=== PATIENT | male | born 1955 | race Caucasian/White ===

== ENCOUNTER → 2022-07-23 08:51 | Outpatient (CLI) | payer MEDICARE, SELFPAY ==
--- NOTE | ~2022-07-23 | MR_ITS ---
EXAMINATION: MR shoulder LT wo con DATE: 07/23/2022 09:30 INDICATION: Left shoulder weakness and pain with loss of range of motion 2 weeks post fall TECHNIQUE: Magnetic resonance imaging (MRI) of the left shoulder was performed without intravenous co ntrast. Sequences included axial PD-weighted FS FSE, coronal oblique PD-weighted FS FSE, coronal obli que T2-weighted FS FSE, sagittal PD-weighted FS FSE, and sagittal T1-weighted SE. COMPARISON: None. FINDINGS: Coracoacromial arch: The acromion undersurface is flat in morphology (type I). There is mild thickening of the coracoacrom ial ligament near its acromial insertion. Severe acromioclavicular osteoarthritis. Rotator cuff: Moderate supraspinatus and infraspinatus tendinopathy. Large full-thickness tear along the superior a nd middle facet footplates of the supraspinatus and all but the posterior most infraspinatus tendon w here there are a few residual intact fibers. There is approximately 3 cm medial retraction of the fra yed and irregular tear margin which is positioned slightly medial to the apex of the humeral head. Th ere is associated feathery muscular edema in both of the supraspinatus and infraspinatus muscle ankit es both a small partial-thickness tear along the cephalad myotendinous junction of the supraspinatus. The teres minor tendon is normal. Moderate subscapularis tendinopathy with attenuation of the distal 2 cm the cephalad portion of the tendon with fraying and likely mild partial thickness tear along th e bursal side of the tendon. No asymmetric rotator cuff muscle atrophy. Biceps tendon, glenoid labrum and glenohumeral cartilage: Full-thickness tear and distal retraction of the long head biceps tendon with fraying and split teari ng of the retracted tear margin which is positioned below level of the intertubercular groove. Amorph ous degenerative tearing of the superior glenoid labrum. There are small marginal osteophytes along t he posterior inferior glenoid which extends into the base of the posterior inferior glenoid labrum. C hondral swelling and mild partial-thickness chondral fissuring without degenerative subchondral gonzalez es at the inferior glenoid. Mild partial-thickness cartilage loss with smooth chondral surface at the humeral head lateral to the apex. Fluid: Small glenohumeral joint effusion which extends into the subacromial/subdeltoid and subcoracoid bursa e through the full-thickness rotator cuff tear. No loose osteochondral bodies. Bones: No fracture or pathologic marrow replacing process. Cystic change along the superior and middle facet s of the greater tuberosity and to lesser extent along the lesser tuberosity likely related to chroni c rotator cuff disease. IMPRESSION: 1. Moderate rotator cuff tendinopathy with recent-appearing large full-thickness tear of the posterio r supraspinatus and anterior two thirds of the infraspinatus tendon along with additional small parti al-thickness tear along the anterosuperior myotendinous junction of the supraspinatus. 2. Mild partial-thickness bursal sided tear of the cephalad aspect of the distal subscapularis tendon . 3. Mild glenohumeral osteoarthritis with degenerative tearing of the superior glenoid labrum. 4. Full-thickness tear and distal retraction of the long head biceps tendon. 5. Severe acromioclavicular osteoarthritis. Reviewed, dictated and finalized at location A. IMPRESSION: 1. Moderate rotator cuff tendinopathy with recent-appearing large full-thicknes s tear of the posterior supraspinatus and anterior two thirds of the infraspina tus tendon along with additional small partial-thickness tear along the anteros uperior myotendinous junction of the supraspinatus. 2. Mild partial-thickness bursal sided tear of the c
== END ==
PROVIDERS: Visit Provider Orthopaedic Surgery
DX: S46.812A Strain of other muscles, fascia and tendons at shoulder and upper arm level, left arm, initial encounter (principal); M19.012 Primary osteoarthritis, left shoulder; S46.112A Strain of muscle, fascia and tendon of long head of biceps, left arm, initial encounter; T14.90XA Injury, unspecified, initial encounter
CPT/HCPCS: 73221

== ENCOUNTER 2022-09-20 19:06 | Inpatient (IN) | payer MEDICARE, SELFPAY ==
[2022-09-20] VITALS (10 sets, daily range): BP systolic 100–172; BP diastolic 69–87; PULSE 106–128; RESP 14–25; TEMP 36.8–37.7; O2SAT 94–97
--- NOTE | ~2022-09-20 | CT_ITS ---
EXAMINATION: CTA chest PE protocol DATE: 09/20/2022 21:31 INDICATION: fever, tachycardia, SOB, 7 days post op TECHNIQUE: Computed tomography angiography (CTA) of the chest was performed with 100 mL Omnipaque-350 intravenous contrast timed to evaluate the pulmonary arteries. Coronal maximum intensity projection 3D-reconstructions were created by the technologist. The dose-length product (DLP) was 1140.73 mGy-cm . Automated exposure control and iterative reconstruction technique were employed. COMPARISON: None. FINDINGS: Lung parenchyma and airways: 3 mm left lower lobe pulmonary nodule. Calcified left lower lobe granulo ma, otherwise clear. Patent airways. Pleura: Unremarkable. Thoracic inlet, axillae and chest wall: Moderate right gynecomastia, the left nipple excluded from th e [id number]. Thoracic aorta: Normal. Mediastinum: Normal. Heart and pericardium: Normal. Coronary artery calcifications: Moderate. Upper abdomen: Hepatic steatosis. Bones: No acute osseous finding. Pulmonary arteries: Study quality: Adequate. No pulmonary emboli detected. IMPRESSION: No CT evidence of acute pulmonary embolus. Gynecomastia. Hepatic steatosis. 3 mm left lower lobe pulmonary nodule, likely granuloma, requiring no additional workup unless the pa tient is at high risk, in which case consider an optional follow-up low-dose noncontrast CT of the ch est in 12 months. Reviewed, dictated and finalized at location K. IMPRESSION: No CT evidence of acute pulmonary embolus. Gynecomastia. Hepatic steatosis. 3 mm left lower lobe pulmonary nodule, likely granuloma, requiring no additiona l workup unless the patient is at high risk, in which case consider an optional follow-up low-dose noncontrast CT of the chest in 12 months.
--- NOTE | ~2022-09-20 | US_ITS ---
Duplex Sonography of the bilateral lower extremities: Indication: Swelling, erythema Sagittal and transverse B-mode images as well as color-flow imaging were performed on the right and l eft femoral and popliteal veins. B-mode examination was done without and with compression in the tra nsverse plane. There is good visualization of the bilateral common femoral, proximal profunda femora l, superficial femoral, greater saphenous, and popliteal veins. Normal flow was seen on color-flow im aging. Normal compressibility was demonstrated. Bilateral posterior tibial veins are also patent. Impression: No evidence of deep vein thrombosis involving either lower extremity. Reviewed, dictated and finalized at location . Impression: No evidence of deep vein thrombosis involving either lower extremit y.
--- NOTE | 2022-09-20 19:58 | ECG_ITS ---
Measurements Intervals [place] Rate: 121 P: 39 FL: 135 QRS: 4 QRSD: 101 T: 61 QT: 337 QTc: 478 Interpretive Statements SINUS TACHYCARDIA CONSULT [facility] [facility] AND T ABNORMALITY ABNORMAL ECG NO PREVIOUS ECG AVAILABLE FOR COMPARISON Electronically Signed On 09-21-2022 8:17:28 CDT by Kayode Zavala M.D.
[2022-09-20 20:08] LABS: Basophils Absolute Auto 0.1 K/mm3 (0.0-0.1); Basophils Percent Auto 0.4 % (0.2-1.2); Eosinophils Percent Auto 0.1 % (0-4.4); Hematocrit 45.9 % (42.0-52.0); Hemoglobin 16.3 g/dL (14.0-18.0); Immature Granulocyte Absolute 0.31 K/mm3 (0.00-0.031); Immature Granulocyte Percent A 1.3 % (0-0.5); Lymphocytes Absolute Auto 1.07 K/mm3 (0.9-3.2); Lymphocytes Percent Auto 4.6 % (18.3-44.2); Mean Corpuscular HGB Conc 35.5 g/dl (32-36); Mean Corpuscular Hemoglobin 32.6 pg (26-34); Mean Corpuscular Volume 91.8 fl (80-100); Mean Platelet Volume 9.6 fl (7.4-10.4); Monocytes Percent Auto 4.1 % (2.6-8.5); Neutrophils Absolute Auto 20.9 K/mm3 (1.3-6.7); Neutrophils Percent Auto 89.5 % (45.5-73.1); Platelet Count Result 316 k/mm3 (150-375); Red Cell Distribution Width 12.6 % (11.5-14.5); White Blood Count 23.4 K/mm3 (4.5-10.0)
--- NOTE | 2022-09-20 20:21 | ED.FEVER ---
HPI - Fever General Chief Complaint: Fever <ALE Leo Last Filed: 09/21/22 01:28> Stated Complaint: fever, body aches <ALE Leo Last Filed: 09/21/22 01:28> Time Seen by Provider: 09/20/22 19:36 <ALE Leo Last Filed: 09/21/22 01:28> History of Present Illness HPI Narrative: Patient is 66-year-old male here for evaluation of fever. Patient states that he had his rotator cuff repaired 7 days ago at [facility]. He was doing well until today when he started to get diffuse body aches. He took his temperature and it was 101 at home. He has also developed some shortness of breath and nonproductive cough today. He had a negative COVID, flu and strep test at a prior urgent care. He does not take blood thinner medicines. He has not taken any Tylenol for his symptoms today. <ALE Leo Last Filed: 09/21/22 01:28> Related Data Home Medications: Home Medications Medication Instructions Recorded Confirmed allopurinol 300 mg tablet 300 mg PO DAILY 09/21/22 09/21/22 aspirin 81 mg tablet 81 mg PO DAILY 09/21/22 09/21/22 cetirizine 10 mg capsule 10 mg PO DAILY 09/21/22 09/21/22 lisinopril 20 1 tablet PO DAILY 09/21/22 09/21/22 mg-hydrochlorothiazide 25 mg tablet metoprolol succinate 50 mg 50 mg PO DAILY 09/21/22 09/21/22 tablet,extended release 24 hr oqbdnjiq-nbgvanyi-gttpw acid 400 1 tablet PO DAILY 09/21/22 09/21/22 mcg-vit K 20 mcg-lycop 300 mcg tablet oxycodone-acetaminophen 10 mg-325 1 tablet PO Q4H PRN Pain (Scale 09/21/22 09/21/22 mg tablet Score 7-10) <ALE Leo Last Filed: 09/21/22 01:28> Allergies/Adverse Reactions: Allergies Allergy/AdvReac Type Severity Reaction Status Date / Time codeine AdvReac Unknown Headache Verified 09/20/22 19:24 Bnfzshq-ASR-PcA Reductase AdvReac Unknown Joint Pain Verified 09/21/22 02:53 Inhibitor <Tessa Shrestha PA-C - Last Filed: 09/21/22 01:28> Review of Systems Review of Systems: Gen: Reports fevers Eyes: Denies eye pain or visual change ENT: Denies congestion Respiratory: Reports shortness of breath CV: Reports chest pain GI: Denies abdominal pain nausea, emesis or diarrhea : denies burning, urgency, frequency or hematuria Musculoskeletal: Denies back pain or muscle pain Neuro: Denies numbness, tingling, weakness or focal weakness Skin: Denies rash Except as documented, all other systems reviewed and negative <ALE Leo Last Filed: 09/21/22 01:28> [facility] Family History Family History: Family History (Updated 09/21/22 @ 03:28 by Judi Coreas RN) Other Unknown family medical history <ALE Leo Last Filed: 09/21/22 01:28> Social History Social History: Social History Smoking status: Never smoker Alcohol intake: never Substance use: never Lack of Transportation: No Lack of Food: Never True Current Housing: I Have Housing Concerned About Future Housing: No Difficulty Paying Gas/Electric Bills: No Difficulty Paying for Meds: No Currently Unemployed: No Education: Decline to Answer Difficulty w/ Childcare or Family Care: No Spiritual care concerns: No <ALE Leo Last Filed: 09/21/22 01:28> Exam Narrative: APPEARANCE: ill-appearing male, tachypneic Head: Normocephalic and atraumatic. EYES: PERRLA/EOMI, conjunctivae clear NOSE: No nasal drainage EARS: External ear normal in appearance THROAT: Oropharynx is clear. Mucous membranes are moist. NECK: Supple. No adenopathy, no masses. RESPIRATORY: Tachypneic. Airway patent, respirations nonlabored. Clear to auscultation bilaterally, no rales, rhonchi, wheezing. CARDIOVASCULAR: Tachycardic. Regular rhythm without murmurs, rubs, or gallops. ABDOMINAL: Normoactive bowel sounds. Soft, nontender, nondistended. No rebound tenderness or guarding. M
[2022-09-20 20:23] LABS: Prothrombin Time 13.6 Seconds (11.1-14.7)
[2022-09-20 20:24] LABS: Partial Thromboplastin Time 29.9 SECONDS (22.3-36.8)
[2022-09-20] MEDS: ACETAMINOPHEN 500 MG TABLET 1000 MG PO (20:25)
[2022-09-20 20:26] LABS: Lactic Acid Reflex 3.3 mmol/L (0.7-2.0)
[2022-09-20] MEDS: SODIUM CHLORIDE 0.9% IV 1,000 ML 999 ML IV CONT ×2 (20:28→21:56)
[2022-09-20 20:45] LABS: Alanine Aminotransferase 48 U/L (6-50); Albumin Level 4.5 g/dL (3.5-5.1); Alkaline Phosphatase 65 U/L (38-126); Anion Gap 11 mmol/L (8-16); Aspartate Amino Transferase 44 U/L (17-59); Bilirubin,Total 0.6 mg/dL (0.2-1.3); Blood Urea Nitrogen 16 mg/dL (9-20); Calcium 9.2 mg/dL (8.4-10.2); Carbon Dioxide 26 mmol/L (22-30); Chloride 97 mmol/L (98-107); Estimated CRCL calculation 113 ml/min; Estimated Glomerular Filt Rate > 60; Glucose 150 mg/dL (65-110); NT Pro B Type Natriuretic Pept 180 pg/mL (19.9-100); Potassium 3.6 mmol/L (3.4-5.0); Sodium 134 mmol/L (137-145); Troponin I < 0.012 ng/mL (0.000-0.034)
[2022-09-20 21:17] LABS: Appearance Urine Clear (Clear); Bacteria Urine None Seen /hpf; Bilirubin Urine Negative (Negative); Blood Urine Negative (Negative); Color Urine Yellow (Yellow); Glucose Urine UA Negative (Negative); Ketones Urine Negative (Negative); Leukocyte Esterase Ur Trace LEU/UL (Negative); Nitrate Urine Negative (Negative); Non Pathogenic Casts 0-2; Protein Urine Negative (Negative); RBC Urine 0-2 /hpf (0-2); Specific Grav Ur 1.013 (1.001-1.035); Squamous Epithelial Cell Urine None seen /hpf (Few); Urobilinogen Urine 0.2 mg/dL (<2.0); WBC Urine 0-5 /hpf; pH Urine 6.5 (5.0-9.0)
[2022-09-20 21:18] LABS: Add Urine Microscopic? YES
[2022-09-20] MEDS: PIPERACILLN/TAZ 3.375GM/NS50ML 3.375 GM/50 ML BAG IVPB (21:56)
[2022-09-20] MEDS: VANCOMYCIN 1,250 MG/NS 250 ML 1,250 MG/250 ML BAG 166.67 MG IVPB ×2 (22:25→23:53)
[2022-09-20 23:06] LABS: Reflex Lactic Acid Yes or No Add Lactic
[2022-09-21] VITALS (12 sets, daily range): BP systolic 111–157; BP diastolic 61–83; PULSE 96–105; RESP 14–20; TEMP 36.3–37.4; O2SAT 94–99; BMI 44.2
[2022-09-21 00:37] LABS: Lactic Acid 2.6 mmol/L (0.7-2.0)
[2022-09-21] MEDS: SODIUM CHLORIDE 0.9% IV 1,000 ML 999 ML IV CONT (01:47)
--- NOTE | 2022-09-21 02:15 | ADMGEN ---
This patient, Altagracia Murphy, was admitted to Medical Room 349-01. Patient/family oriented to hospital policies and general routines including ID bracelet, bed and alarms, visiting hours, pain management, procedures, bathroom and other care routines, personal items, smoking policy, room service/diet, and visiting hours. Information on how to activate the Rapid Response Team has been discussed. Patient/Family are encouraged to report perceived risks to care and to ask questions if they do not understand what they are told or what they should do.
[2022-09-21 02:41] LABS: Influenza A QL RT-PCR Negative (Negative); Influenza B QL RT-PCR Negative (Negative); RSV RNA, RT-PCR Negative (Negative); SARS-CoV-2 RNA PCR Negative (Negative)
[2022-09-21] MEDS: SODIUM CHLORIDE 0.9% IV 1,000 ML 125 ML IV CONT (04:05)
[2022-09-21 06:39] LABS: Estimated CRCL calculation 96 ml/min; Estimated Glomerular Filt Rate > 60
[2022-09-21] MEDS: THERAPEUTIC MULTIVITAMINS/MINERALS TAB (*BKC) 1 TABLET PO (09:00)
[2022-09-21] MEDS: allopurinoL 300 MG TABLET PO (09:00)
[2022-09-21] MEDS: LORATADINE 10 MG TABLET PO (09:00)
[2022-09-21] MEDS: ASPIRIN 81 MG ENTERIC TABLET PO (09:00)
--- NOTE | 2022-09-21 10:36 | PM.IMHP ---
H&P: HPI History of Present Illness Date/Time: 09/21/22 10:00 Chief Complaint: Fever and chills Chronic cough on lisinopril Recent left rotator cuff repair Narrative: This is a pleasant 66-year-old white male patient presents to the hospital for admission due to suspected sepsis. Patient had left rotator cuff repair 7 days ago at [facility] and was concerned he may have a surgical site infection. Patient reports that he was doing well after the surgery no longer using and pain medication and was active without complication until suddenly he felt severe chills and fever. Patient was advised to seek care at the emergency department. Workup in the emergency department was concerning for sepsis where patient was found to be tachycardic and febrile with a white blood cell count of 23.4. He also had a lactic acidosis at 3.3 with a repeat of 2.6 after fluid bolus. Patient had some mild shortness of breath and given recent surgical status CTA was performed to assess for pulmonary embolus. No findings of PE or pneumonia. Patient notes some mild sore throat that he is attributing to being intubated a week ago for surgery. Patient denied any urinary discomfort, wounds, neck stiffness, headache, light sensitivity. Patient denies productive cough or wheezing, endorses a chronic dry cough that he has had for months to years that he associates with taking lisinopril daily. Patient reports he has never talked to his prescriber (Cardiology out of [facility]) regarding this complaint with lisinopril. At this time there is no evident source to explain infection. For this reason patient was started on vancomycin and Zosyn in the emergency department and continued to the floor. Review of Systems Review of Systems: All systems reviewed & are unremarkable except as noted in HPI and below Constitutional: Comments: Fever and chills Cardiovascular: Comments: Denies chest pain or shortness of breath Respiratory: Comments: Notes chronic dry cough, denies shortness of breath at this time, reports left leg swelling Musculoskeletal: Comments: Reports left leg swelling and tenderness PMFSH Past Medical History Medical History Gout HLD (hyperlipidemia) Seasonal allergies Family History Family History Other Unknown family medical history Social History Social History Smoking status: Never smoker Alcohol intake: never Substance use: never Lack of Transportation: No Lack of Food: Never True Current Housing: I Have Housing Concerned About Future Housing: No Difficulty Paying Gas/Electric Bills: No Difficulty Paying for Meds: No Currently Unemployed: No Education: Decline to Answer Difficulty w/ Childcare or Family Care: No Spiritual care concerns: No Comments Tonsillectomy 1974, right rotator cuff surgery 1998, sinus surgery 2007, left rotator cuff surgery 2022 Medical History Gout HLD (hyperlipidemia) Seasonal allergies Family History Other Unknown family medical history Social History Smoking status: Never smoker Alcohol intake: never Substance use: never Lack of Transportation: No Lack of Food: Never True Current Housing: I Have Housing Concerned About Future Housing: No Difficulty Paying Gas/Electric Bills: No Difficulty Paying for Meds: No Currently Unemployed: No Education: Decline to Answer Difficulty w/ Childcare or Family Care: No Spiritual care concerns: No Meds Home Medications and Allergies Home Medications Medication Instructions Recorded Confirmed Type allopurinol 300 mg tablet 300
[2022-09-21 11:09] LABS: Lactic Acid Reflex 2.6 mmol/L (0.7-2.0)
[2022-09-21 11:11] LABS: Strep Group A RT-PCR NOT DETECTED (Negative)
[2022-09-21] MEDS: PIPERACILLN/TAZ 3.375GM/NS50ML 3.375 GM/50 ML BAG IVPB ×2 (11:14→17:05)
[2022-09-21] MEDS: LACTATED RINGERS 1,000 ML 150 ML IV CONT (13:31)
[2022-09-21] MEDS: ACETAMINOPHEN 325 MG TABLET 650 MG PO ×2 (13:32→20:11)
[2022-09-21 13:53] LABS: Reflex Lactic Acid Yes or No Add Lactic
[2022-09-21 15:44] LABS: Lactic Acid 1.6 mmol/L (0.7-2.0)
[2022-09-21] MEDS: ENOXAPARIN 40 MG/0.4 ML SYRINGE SUB-Q (20:15)
[2022-09-21] MEDS: LACTATED RINGERS 1,000 ML 70 ML IV CONT (20:18)
[2022-09-22] VITALS (7 sets, daily range): BP systolic 137–145; BP diastolic 70–83; PULSE 86–105; RESP 14–16; TEMP 36.2–36.7; O2SAT 97–99
[2022-09-22] MEDS: PIPERACILLN/TAZ 3.375GM/NS50ML 3.375 GM/50 ML BAG IVPB ×4 (00:44→18:59)
[2022-09-22 06:21] LABS: Basophils Absolute Auto 0.1 K/mm3 (0.0-0.1); Basophils Percent Auto 0.3 % (0.2-1.2); Eosinophils Absolute Auto 0.1 K/mm3 (0-0.3); Eosinophils Percent Auto 0.4 % (0-4.4); Hematocrit 39.7 % (42.0-52.0); Hemoglobin 13.6 g/dL (14.0-18.0); Immature Granulocyte Absolute 0.14 K/mm3 (0.00-0.031); Immature Granulocyte Percent A 0.7 % (0-0.5); Lymphocytes Absolute Auto 1.46 K/mm3 (0.9-3.2); Lymphocytes Percent Auto 7.7 % (18.3-44.2); Mean Corpuscular HGB Conc 34.3 g/dl (32-36); Mean Corpuscular Hemoglobin 32.2 pg (26-34); Mean Corpuscular Volume 93.9 fl (80-100); Mean Platelet Volume 9.6 fl (7.4-10.4); Monocytes Absolute Auto 1.4 K/mm3 (0.1-0.6); Monocytes Percent Auto 7.2 % (2.6-8.5); Neutrophils Absolute Auto 15.9 K/mm3 (1.3-6.7); Neutrophils Percent Auto 83.7 % (45.5-73.1); Platelet Count Result 252 k/mm3 (150-375); Red Blood Count 4.23 M/mm3 (4.6-6.20); Red Cell Distribution Width 13.1 % (11.5-14.5); White Blood Count 18.9 K/mm3 (4.5-10.0)
[2022-09-22 06:27] LABS: Lactic Acid Reflex 1.5 mmol/L (0.7-2.0)
[2022-09-22 06:33] LABS: Alanine Aminotransferase 33 U/L (6-50); Albumin Level 3.7 g/dL (3.5-5.1); Alkaline Phosphatase 70 U/L (38-126); Anion Gap 6 mmol/L (8-16); Aspartate Amino Transferase 46 U/L (17-59); Bilirubin,Total 0.7 mg/dL (0.2-1.3); Blood Urea Nitrogen 10 mg/dL (9-20); Calcium 8.5 mg/dL (8.4-10.2); Carbon Dioxide 28 mmol/L (22-30); Chloride 101 mmol/L (98-107); Estimated CRCL calculation 124 ml/min; Estimated Glomerular Filt Rate > 60; Glucose 139 mg/dL (65-110); Potassium 3.3 mmol/L (3.4-5.0); Sodium 135 mmol/L (137-145)
[2022-09-22] MEDS: allopurinoL 300 MG TABLET PO (08:17)
[2022-09-22] MEDS: THERAPEUTIC MULTIVITAMINS/MINERALS TAB (*BKC) 1 TABLET PO (08:17)
[2022-09-22] MEDS: LOSARTAN POTASSIUM 50 MG TABLET PO (08:17)
[2022-09-22] MEDS: hydroCHLOROthiazide 25 MG TABLET PO (08:17)
[2022-09-22] MEDS: ASPIRIN 81 MG ENTERIC TABLET PO (08:17)
[2022-09-22] MEDS: LORATADINE 10 MG TABLET PO (08:17)
[2022-09-22] MEDS: ACETAMINOPHEN 325 MG TABLET 650 MG PO (08:17)
[2022-09-22] MEDS: METOPROLOL SUCCINATE EXT REL 50 MG TABCR PO (08:18)
[2022-09-22] MEDS: POTASSIUM CHLORIDE 20 MEQ ER TABLET 40 MEQ PO (08:19)
[2022-09-22] MEDS: ENOXAPARIN 40 MG/0.4 ML SYRINGE SUB-Q ×2 (08:21→22:06)
--- NOTE | 2022-09-22 08:45 | PM.IMPN ---
Progress Note: A&P Assessment and Plan (1) Sepsis: Onset Date: ~09/21/22 Code(s): A41.9 - Sepsis, unspecified organism Status: Acute Assessment and Plan: Patient presented with fever and chills originally unknown source sepsis. Now left lower extremity cellulitis has been identified with blood culture positive for g positive cocci in chains awaiting for the report and susceptibility. Patient on vancomycin and Zosyn this time. Lactic acidosis has resolved and blood pressure remained stable. Continue antibiotics (2) Lactic acidosis: Code(s): E87.20 - Acidosis, unspecified Status: Acute Assessment and Plan: With administration of IV fluids and IV antibiotics, lactic acidosis has resolved. (3) Cellulitis: Code(s): L03.90 - Cellulitis, unspecified Status: Acute Assessment and Plan: Left lower extremity cellulitis identified with discovery a small puncture wound to the left lateral calf, no surrounding fluctuance or drainable abscess. Update Tdap due to unknown puncture. Continue IV antibiotics with planned deescalation and discharge tomorrow. (4) Shoulder pain with history of repair of rotator cuff: Code(s): M25.519 - Pain in unspecified shoulder; Z98.890 - Other specified postprocedural states Status: Acute Assessment and Plan: Shoulder surgery 8 days ago at [facility] for rotator cuff repair. Surgical site clean dry intact sutures to be removed 09/24/2022. Patient maintain shoulder sling in place (5) HTN (hypertension): Qualifiers: Hypertension type: primary hypertension Qualified Code(s): I10 - Essential (primary) hypertension Code(s): I10 - Essential (primary) hypertension Status: Acute Assessment and Plan: Blood pressure stabilized/remained mildly elevated overnight. Blood pressure medicines held yesterday due to concern for hypotension in the setting of sepsis. Restart home medications with substitution of losartan for his lisinopril due to chronic dry cough associated with lisinopril. Plan Discontinue continuous IV fluids. Discontinue telemetry monitoring. Continue IV antibiotics as there was a rise in white blood cell count overnight after an initial decrease. Repeat blood cultures and follow cultures in process for identification and sensitivity. Restart home antihypertensives. Discontinued lisinopril and replaced with losartan due to chronic cough associated with lisinopril. Time Spent With Patient Time with patient: Greater than 35 minutes Subjective Date/time seen: 09/22/22 08:30 Interval history: This is a 66-year-old male patient who was admitted to the hospitalist service due to concern for sepsis. Upon assessment this morning patient reports improvement in sensation dizziness and denies any fevers or chills. States that he is feeling much better back to baseline. Patient is receiving IV vancomycin and Zosyn. IV fluids infused overnight. Patient reports good appetite and good oral intake. Patient denies any pain or concerns with left shoulder surgical site. Review of Systems Review of Systems: All systems reviewed & are unremarkable except as noted in HPI and below Exam Narrative: General:?Well appearing in good spirits seated upright in a chair. HEENT:?PERRL, EOMI. Sclera anicteric. Moist mucous membranes Neck:??Supple. Full ROM without meningeal signs Respiratory:?Lungs are clear to auscultation bilaterally. No wheezes, rales or rhonchi Cardiovascular:??Regular rate and rhythm with S1-S2. Gastrointestinal:??Abdomen is obese, soft and non tender with normal bowel sounds.? No guarding or rebound tenderness. Skin:??Warm and dry.? Erythema noted left lower leg Extremities:??Left shoulder sling in place, multiple arthroscopic wounds with intact sutures, no surrounding erythema no significant tenderness no warmth or swelling and no wound drainage.? Left lower extremity swollen, no pitting edema,
[2022-09-22 09:46] LABS: Vancomycin Trough 6.8 ug/mL (10.0-20.0)
[2022-09-22] MEDS: TETANUS,DIPHTHERIA,AC PERTUSSIS ADULT (0.5 ML) BOOSTRIX IM (11:38)
[2022-09-23] MEDS: PIPERACILLN/TAZ 3.375GM/NS50ML 3.375 GM/50 ML BAG IVPB ×3 (00:45→11:43)
[2022-09-23 02:12] LABS: Basophils Absolute Auto 0.1 K/mm3 (0.0-0.1); Basophils Percent Auto 0.6 % (0.2-1.2); Eosinophils Absolute Auto 0.3 K/mm3 (0-0.3); Hematocrit 38.8 % (42.0-52.0); Hemoglobin 13.4 g/dL (14.0-18.0); Immature Granulocyte Absolute 0.16 K/mm3 (0.00-0.031); Immature Granulocyte Percent A 1.2 % (0-0.5); Lymphocytes Absolute Auto 2.41 K/mm3 (0.9-3.2); Lymphocytes Percent Auto 17.8 % (18.3-44.2); Mean Corpuscular HGB Conc 34.5 g/dl (32-36); Mean Corpuscular Hemoglobin 31.8 pg (26-34); Mean Corpuscular Volume 92.2 fl (80-100); Mean Platelet Volume 9.8 fl (7.4-10.4); Monocytes Absolute Auto 1.3 K/mm3 (0.1-0.6); Monocytes Percent Auto 9.3 % (2.6-8.5); Neutrophils Absolute Auto 9.3 K/mm3 (1.3-6.7); Neutrophils Percent Auto 69.1 % (45.5-73.1); Platelet Count Result 271 k/mm3 (150-375); Red Blood Count 4.21 M/mm3 (4.6-6.20); Red Cell Distribution Width 12.9 % (11.5-14.5); White Blood Count 13.5 K/mm3 (4.5-10.0)
[2022-09-23 02:45] LABS: Alanine Aminotransferase 34 U/L (6-50); Albumin Level 3.5 g/dL (3.5-5.1); Alkaline Phosphatase 57 U/L (38-126); Anion Gap 7 mmol/L (8-16); Aspartate Amino Transferase 51 U/L (17-59); Bilirubin,Total 0.6 mg/dL (0.2-1.3); Blood Urea Nitrogen 11 mg/dL (9-20); Calcium 8.7 mg/dL (8.4-10.2); Carbon Dioxide 26 mmol/L (22-30); Chloride 102 mmol/L (98-107); Estimated CRCL calculation 124 ml/min; Estimated Glomerular Filt Rate > 60; Glucose 120 mg/dL (65-110); Potassium 3.7 mmol/L (3.4-5.0); Sodium 135 mmol/L (137-145)
[2022-09-23 02:50] LABS: Vancomycin Trough 18.1 ug/mL (10.0-20.0)
[2022-09-23 05:50] VITALS: BP 158/92; PULSE 87; RESP 16; TEMP 36.9; O2SAT 100
[2022-09-23 09:00] VITALS: BP 152/88; PULSE 80
[2022-09-23 09:07] VITALS: PULSE 80
[2022-09-23] MEDS: METOPROLOL SUCCINATE EXT REL 50 MG TABCR PO (09:07)
[2022-09-23] MEDS: LOSARTAN POTASSIUM 50 MG TABLET PO (09:07)
[2022-09-23] MEDS: hydroCHLOROthiazide 25 MG TABLET PO (09:07)
[2022-09-23] MEDS: ASPIRIN 81 MG ENTERIC TABLET PO (09:07)
[2022-09-23] MEDS: THERAPEUTIC MULTIVITAMINS/MINERALS TAB (*BKC) 1 TABLET PO (09:07)
[2022-09-23] MEDS: LORATADINE 10 MG TABLET PO (09:07)
[2022-09-23] MEDS: allopurinoL 300 MG TABLET PO (09:07)
[2022-09-23] MEDS: ENOXAPARIN 40 MG/0.4 ML SYRINGE SUB-Q ×2 (09:07→20:16)
--- NOTE | 2022-09-23 11:09 | PM.IMPN ---
Progress Note: A&P Assessment and Plan (1) Sepsis: Onset Date: ~09/21/22 Code(s): A41.9 - Sepsis, unspecified organism Status: Acute Assessment and Plan: Patient stabilized with resolution of fever/chills, improvement in labs (lactic acid normalized and WBC downtrending) and cellulitis appearance beginning to improve. Will continue vancomycin in case of polymicrobial involvement. Monitor blood cultures. Deescalate Zosyn to IV ceftriaxone and plan to change to oral antibiotics upon discharge. (2) Cellulitis: Code(s): L03.90 - Cellulitis, unspecified Status: Acute Assessment and Plan: Beginning to improve. See above. (3) Left leg swelling: Code(s): M79.89 - Other specified soft tissue disorders Status: Acute Assessment and Plan: Beginning to improve. See above. (4) Lactic acidosis: Code(s): E87.20 - Acidosis, unspecified Status: Acute Assessment and Plan: Lactic acid returned to normal. No longer trending. (5) Shoulder pain with history of repair of rotator cuff: Code(s): M25.519 - Pain in unspecified shoulder; Z98.890 - Other specified postprocedural states Status: Acute Assessment and Plan: Stable and improved. Follow surgeon recommendations regarding removing sutures tomorrow morning. (6) HTN (hypertension): Qualifiers: Hypertension type: primary hypertension Qualified Code(s): I10 - Essential (primary) hypertension Code(s): I10 - Essential (primary) hypertension Status: Acute Assessment and Plan: Stable, home medications resumed with therapeutic change from lisinopril to losartan due to chronic cough Plan Trend WBC Monitor blood cultures for sensitivities and ensure no growth on repeat cultures. Deescalate antibiotics after consultation with ID Pharmacist. Time Spent With Patient Time with patient: 25 - 35 minutes Subjective Date/time seen: 09/23/22 07:15 Interval history: This is a 66-year-old male patient admitted to the hospital service for sepsis ultimate source of the extremity cellulitis. Initial blood cultures positive for group B strep. There was concern this may possibly be polymicrobial and patient remains on IV vancomycin and Zosyn. Patient reports resting better overnight no fever no chills no weakness no dizziness no chest pain no shortness of breath nausea no vomiting no constipation no diarrhea. Patient reports no pain to his left shoulder surgical site and no general complaints at this time. Sutures are to be removed tomorrow. Patient reports he has appointment with surgeon tomorrow for follow up but he will call office today to inquire if we should remove sutures while admitted here. Review of Systems Review of Systems: All systems reviewed & are unremarkable except as noted in HPI and below Exam Narrative: General:?Well appearing in good spirits seated upright in a chair. HEENT:?PERRL, EOMI. Sclera anicteric. Moist mucous membranes Neck:??Supple. Full ROM without meningeal signs Respiratory:?Lungs are clear to auscultation bilaterally. No wheezes, rales or rhonchi Cardiovascular:??Regular rate and rhythm with S1-S2. Gastrointestinal:??Abdomen is obese, soft and non tender with normal bowel sounds.? No guarding or rebound tenderness. Skin:??Warm and dry.? Erythema noted left lower leg Extremities:??Left shoulder sling in place, multiple arthroscopic wounds with intact sutures, no surrounding erythema no significant tenderness no warmth or swelling and no wound drainage.? Left lower extremity swollen, no pitting edema, there is calf erythema, tenderness, tightness and warmth to the touch. On the left lateral edge of left calf there is an apparent skin puncture site, no fluctuance or appreciable abscess.?Erythema is no longer extending and is beginning to lighten and resolve at the most proximal aspects. No cyanosis or clubbing. Radial and pedal pulses intact
--- NOTE | 2022-09-23 13:49 | PHA.ABX.ID ---
Pharmacy ID Consult - Stewardship Interventions Type of Interventions: De-escalation Pharmacy ID Note: Subjective Pharmacy was consulted by Ludivina Lu regarding infectious diseases for Altagracia Murphy. Altagracia Murphy is a 66 year old M with concerns regarding bloodstream infection likely secondary to SSTI. Background The patient is currently receiving Vancomycin and Ceftriaxone (~day 3 of full therapy). Patient was recently transitioned from piperacillin/tazobactam to ceftriaxone. The patient's PMH includes cellulitis surrounding calf that has begun remitting. Additionally, WBC trend is approaching normalization (18.9 --> 13.5) and has a SCr of 0.7 mg/dL. Microbiology is as below which shows group b streptococcus bloodstream infection with repeat cultures obtained on 09/22 marked as pending. Microbiology 09/20/22 21:47 Blood Blood Culture - Preliminary 09/20/22 20:49 Blood Blood Culture - Final Group B Streptococcus isolated Assessment/Recommendation/Discussion Had brief discussion with consulting provider and appears patient infection is remitting including both WBC and the SSTI. Currently, ceftriaxone and vancomycin is appropriate for covering this BSI while also providing additional MRSA coverage for the SSTI. Can consider de-escalation as patient improves and is stable. Appears causative pathogen is Group B streptococcus at this time and if not suitable for an oral conversion, can discontinue vancomycin to monotherapy ceftriaxone. If oral conversion is appropriate, can consider amoxicillin/clavulanate 875 mg q8h. Consider total duration of 7-10 days, or if patient slow to recovery perhaps 14 days. Thank you for the interesting consult. Clarence Boyd, PharmD Infectious Disease/Antimicrobial Stewardship Pharmacist 09/23/22; 1349 WBC 13.5 K/mm3 (4.5-10.0) H 09/23/22 01:59 Creatinine 0.70 mg/dL (0.7-1.3) 09/23/22 01:59 Estim Creat Clear Calc 124 ml/min 09/23/22 01:59
[2022-09-23 14:00] VITALS: BP 161/83; PULSE 80; RESP 18; TEMP 36.2; O2SAT 98
[2022-09-23] MEDS: cefTRIAXone 2 GM/NS 100 ML 2 GM/100 ML BAG IVPB (16:30)
[2022-09-23 20:00] VITALS: PULSE 84; RESP 18; O2SAT 98
[2022-09-23 20:33] VITALS: BP 152/69; PULSE 84; RESP 18; TEMP 36.6; O2SAT 98
[2022-09-24 04:05] VITALS: BP 153/87; PULSE 84; RESP 18; TEMP 36.1; O2SAT 99
[2022-09-24 05:39] LABS: Basophils Absolute Auto 0.1 K/mm3 (0.0-0.1); Basophils Percent Auto 1.2 % (0.2-1.2); Eosinophils Absolute Auto 0.3 K/mm3 (0-0.3); Eosinophils Percent Auto 3.3 % (0-4.4); Hematocrit 40.4 % (42.0-52.0); Hemoglobin 13.7 g/dL (14.0-18.0); Immature Granulocyte Absolute 0.21 K/mm3 (0.00-0.031); Immature Granulocyte Percent A 2.1 % (0-0.5); Lymphocytes Absolute Auto 1.91 K/mm3 (0.9-3.2); Lymphocytes Percent Auto 19.3 % (18.3-44.2); Mean Corpuscular HGB Conc 33.9 g/dl (32-36); Mean Corpuscular Hemoglobin 31.7 pg (26-34); Mean Corpuscular Volume 93.5 fl (80-100); Mean Platelet Volume 9.8 fl (7.4-10.4); Monocytes Absolute Auto 1.2 K/mm3 (0.1-0.6); Monocytes Percent Auto 12.3 % (2.6-8.5); Neutrophils Absolute Auto 6.1 K/mm3 (1.3-6.7); Neutrophils Percent Auto 61.8 % (45.5-73.1); Platelet Count Result 299 k/mm3 (150-375); Red Blood Count 4.32 M/mm3 (4.6-6.20); Red Cell Distribution Width 12.8 % (11.5-14.5); White Blood Count 9.9 K/mm3 (4.5-10.0)
[2022-09-24 05:50] LABS: Alanine Aminotransferase 42 U/L (6-50); Alkaline Phosphatase 60 U/L (38-126); Anion Gap 5 mmol/L (8-16); Aspartate Amino Transferase 44 U/L (17-59); Bilirubin,Total 0.6 mg/dL (0.2-1.3); Blood Urea Nitrogen 12 mg/dL (9-20); Carbon Dioxide 29 mmol/L (22-30); Chloride 104 mmol/L (98-107); Estimated CRCL calculation 124 ml/min; Estimated Glomerular Filt Rate > 60; Glucose 118 mg/dL (65-110); Potassium 3.4 mmol/L (3.4-5.0); Sodium 138 mmol/L (137-145)
--- NOTE | 2022-09-24 06:47 | PM.DS ---
DS: Admitting Diagnosis Discharge Date 09/24/2022 Admitting Diagnosis Sepsis unknown origin shoulder pain with history repair of rotator cuff HTN, essential Left leg swelling Lactic Acidosis DS: Discharge Diagnosis Discharge Diagnosis (1) Sepsis: Onset Date: ~09/21/22 Code(s): A41.9 - Sepsis, unspecified organism Status: Acute Assessment and Plan: Sepsis due to cellulitis left lower extremity with blood cultures positive for Group B Strep, now improving after 3 days IV antibiotics. WBC downtrending, now normal at 9.9. BP stable on home medications after initially being low after initial IV fluids. Will continue home antibiotics with Augmenting 875 Q8h for total 14 days of antibiotic therapy. Second set of blood cultures negative to this point. Will monitor post discharge. (2) Cellulitis: Code(s): L03.90 - Cellulitis, unspecified Status: Acute Assessment and Plan: See above (3) Shoulder pain with history of repair of rotator cuff: Code(s): M25.519 - Pain in unspecified shoulder; Z98.890 - Other specified postprocedural states Status: Acute Assessment and Plan: Left shoulder surgery now 10 days post operative. Surgical sites are well healed, will remove sutures if ok with patient's surgeon. (4) HTN (hypertension): Qualifiers: Hypertension type: primary hypertension Qualified Code(s): I10 - Essential (primary) hypertension Code(s): I10 - Essential (primary) hypertension Status: Acute Assessment and Plan: Stable, will discharge on losartan/HCTZ and continue metoprolol at home dose. (5) Left leg swelling: Code(s): M79.89 - Other specified soft tissue disorders Status: Acute Assessment and Plan: Left lower extremity cellulitis as cause. US negative for DVT. see above (6) Lactic acidosis: Code(s): E87.20 - Acidosis, unspecified Status: Acute Assessment and Plan: resolved, due to cellulitis as above DS: Summary Hospital Course Reason for hospitalization: Patient was admitted to hospital on 09/20/2022 due to sepsis of unknown origin, suspected to be related to left rotator cuff surgery a week prior. Hospital Course: During hospital stay, patient received IV antibiotics with broad coverage of Vancomycin and Zosyn. Over time, development of left lower extremity cellulitis was identified, apparently caused by an unknown break in skin/puncture on left lower lateral calf. Initial blood cultures positive for Group B Strep and antibiotics deescalated to IV Rocephin. Repeat cultures drawn, initially negative and we will trend upon discharge. ID Pharm recommended Augmentin 875 Q8h upon discharge for 10-14 days of total coverage. Left shoulder surgical site remained well healing and well appearing with no signs of infection. Patient to follow up with surgeon upon discharge. Status at Discharge Functional status at discharge: independent ambulation (baseline, periodic use of cane) Time Spent with Patient Time attestation: Total time spent providing and/or coordinating discharge services: Time spent: Greater than 30 minutes Exam Narrative: General:?Well appearing in good spirits seated upright in a chair. HEENT:?PERRL, EOMI. Sclera anicteric. Moist mucous membranes Neck:??Supple. Full ROM without meningeal signs Respiratory:?Lungs are clear to auscultation bilaterally. No wheezes, rales or rhonchi Cardiovascular:??Regular rate and rhythm with S1-S2. Gastrointestinal:??Abdomen is obese, soft and non tender with normal bowel sounds.? No guarding or rebound tenderness. Skin:??Warm and dry.? Erythema noted left lower leg Extremities:??Left shoulder sling in place, 5 arthroscopic wounds with intact sutures, no surrounding erythema no significant tenderness no warmth or swelling and no wound drainage.? Left lower extremity swollen, no pitting edema, there is calf erythema, tenderness, tightness and warmth to the touch. O
[2022-09-24 08:45] VITALS: BP 146/89; PULSE 84
[2022-09-24] MEDS: allopurinoL 300 MG TABLET PO (08:48)
[2022-09-24] MEDS: ASPIRIN 81 MG ENTERIC TABLET PO (08:48)
[2022-09-24] MEDS: hydroCHLOROthiazide 25 MG TABLET PO (08:48)
[2022-09-24] MEDS: ENOXAPARIN 40 MG/0.4 ML SYRINGE SUB-Q (08:48)
[2022-09-24] MEDS: LORATADINE 10 MG TABLET PO (08:48)
[2022-09-24] MEDS: LOSARTAN POTASSIUM 50 MG TABLET PO (08:48)
[2022-09-24] MEDS: THERAPEUTIC MULTIVITAMINS/MINERALS TAB (*BKC) 1 TABLET PO (08:48)
[2022-09-24 08:50] VITALS: PULSE 84
[2022-09-24] MEDS: METOPROLOL SUCCINATE EXT REL 50 MG TABCR PO (08:50)
[2022-09-24] MEDS: cefTRIAXone 2 GM/NS 100 ML 2 GM/100 ML BAG IVPB (08:56)
--- NOTE | 2022-10-03 08:34 | PC.NURSE ---
Blood cx are negative.
== END 2022-09-24 14:10 | disposition home or self-care (01) | DRG 872 ==
LOC: ANHED 19:59 → ANH3MED 09-21 01:45
PROVIDERS: Admitting Provider Internal Medicine; Emergency Provider Physician Assistant; Visit Provider Nurse Practitioner
DX: A40.1 Sepsis due to streptococcus, group B (principal); L03.116 Cellulitis of left lower limb; E87.21 Acute metabolic acidosis; Z68.41 Body mass index [BMI] 40.0-44.9, adult; I10 Essential (primary) hypertension; Z20.822 Contact with and (suspected) exposure to COVID-19; E78.5 Hyperlipidemia, unspecified; M79.89 Other specified soft tissue disorders; M25.512 Pain in left shoulder; Z98.890 Other specified postprocedural states; E66.9 Obesity, unspecified
CPT/HCPCS: 36415; 71275; 80053; 80202; 81001; 82565; 83605; 83880; 84484; 85025; 85610; 85730; 87040; 87077; 87186; 87637; 87651; 90715; 93005; 93970; 96361; 96365; 96366; 96367; 99285; A9270; G0378; J0696; J1650; J2543; J3370; J7030; J7120; Q9967